=== PATIENT | female | born 1950 | race Caucasian/White ===

== ENCOUNTER 2020-12-29 12:15 | Outpatient (REF) | payer OTHER, SELFPAY ==
[2020-12-29 12:57] LABS: MANUAL DIFF FLAG NO
[2020-12-29 13:08] LABS: Basophils Absolute Auto 0.1 X10*3/uL (0.0-0.2); Basophils Percent Auto 0.6 % (0-2); Eosinophils Absolute Auto 0.1 X10*3/uL (0.0-0.4); Eosinophils Percent Auto 1.6 % (0-4); Hematocrit 41.2 % (37-47); Hemoglobin 13.5 g/dl (12.0-16.0); Imm Gran Abs Auto 0.07 X10*3/uL (0.00-0.03); Imm Gran Pct Auto 0.8 % (0.0-0.4); Lymphocytes Absolute Auto 2.4 X10*3/uL (1.2-4.9); Lymphocytes Percent Auto 29.3 % (20-40); Mean Corpuscular HGB Conc 32.8 g/dl (31.0-35.0); Mean Corpuscular Volume 94.5 fL (80-98); Monocytes Absolute Auto 0.7 X10*3/uL (0.1-1.2); Monocytes Percent Auto 8.1 % (2-11); Neutrophils Absolute Auto 4.9 X10*3/uL (2.0-8.3); Neutrophils Percent Auto 59.6 % (45-73); Platelet Count 300 X10*3/uL (160-400); Red Blood Count 4.36 X10*6/uL (4.20-5.50); Red Cell Distribution Width 12.7 % (11.0-16.0); White Blood Count 8.3 X10*3/uL (4.8-10.8)
[2020-12-29 13:31] LABS: C Reactive Protein 0.06 mg/dL (< or = 0.50)
[2020-12-29 13:58] LABS: Erythrocyte Sedimentation Rate 5 MM/HR (0-20)
== END 2020-12-29 12:16 | disposition home or self-care (01) ==
LOC: HO.LAB 12:15
PROVIDERS: Visit Provider Ophthalmology
DX: H46.9 Unspecified optic neuritis (principal)
CPT/HCPCS: 36415; 85025; 85652; 86140

== ENCOUNTER 2023-06-10 07:08 | Day surgery (SDC) | payer MEDICARE, SELFPAY ==
[2023-06-04 13:59] VITALS: BMI 22.7
--- NOTE | 2023-06-07 07:54 | MHC.SHP ---
Pre-Procedural Eval Section A Date of Service: 06/07/23 The patient is an INPATIENT: No Changes since office visit: No Cold of Flu in the past 2 weeks, No New Medical Problems, No Changes in Medication and No Patient answered all questions The History & Physical has been completed within 30 days and I have reviewed it.: Yes Section B Chief Complaint: Age-related nuclear cataract, right eye Allergies: Allergies Allergy/AdvReac Type Severity Reaction Status Date / Time amoxicillin Allergy Severe Rash Verified 06/04/23 13:56 nitrofurantoin Allergy Severe Rash, fever Verified 06/04/23 13:56 [From Macrobid] Penicillins Allergy Severe Rash Verified 06/04/23 13:56 sulfamethoxazole Allergy Severe Rash Verified 06/04/23 13:56 [From Bactrim] trimethoprim [From Bactrim] Allergy Severe Rash Verified 06/04/23 13:56 lactose Allergy Intermediate Gastrointestinal Verified 06/04/23 13:56 Upset Plan Diagnosis/Plan: Unchanged I have reviewed the history and physical and performed a pertinent physical examination on my patient. No changes have occurred unless specified. Time Spent With Patient Time: Total time managing care of this patient today ____ minutes.
[2023-06-10] MEDS: Cyclopentolate 1 % Ophth Sol 2 ML DRPBTL 1 DROP EYE-RIGHT ×3 (08:00→08:09)
[2023-06-10] MEDS: Tetracaine HCl/PF 0.5% Oph Sol 4 ML DROPS 1 DROP EYE-RIGHT (08:00)
[2023-06-10] MEDS: Ketorolac Tromethamine 0.5% Op 5 ML DROPS 1 DROP EYE-RIGHT ×3 (08:00→08:09)
[2023-06-10] MEDS: Lactated Ringers 500 ML 50 ML IV (08:01)
[2023-06-10] MEDS: Tropicamide 1 % Ophth Sol 3 ML BTL 1 DROP EYE-RIGHT ×3 (08:01→08:09)
[2023-06-10] MEDS: Phenylephrine HCL 2.5% Oph SoL 2 ML BOTTLE 1 DROP EYE-RIGHT ×3 (08:01→08:09)
[2023-06-10 08:11] VITALS: BP 128/81; PULSE 66; RESP 18; TEMP 36.7; O2SAT 99
--- NOTE | 2023-06-10 08:22 | PC.NURSE ---
verified with Jd in pharmacy that patient can receive all eye drops with allergies/reactions verified with patient. he stated yes.
--- NOTE | 2023-06-10 08:39 | P.CONAN_ITS ---
[facility] Past Medical History Medical History Cataract Chronic back pain Generalized anxiety disorder GERD (gastroesophageal reflux disease) History of palpitations Hx of malignant melanoma Hypertension Insomnia Irritable bowel syndrome (IBS) Low back pain Mixed hyperlipidemia Osteoporosis Scoliosis Family History Family history of problems with anesthesia: No Surgical History Surgical History H/O melanoma excision History of hysterectomy Hx of colonoscopy History of Problems with Anesthesia: No Social History Social History Are you a primary workforce investment act career manager to a significant other at home: No Do you presently have visiting nurse or other home services: No Patient Tobacco Use Status: Never used Tobacco Use of substances other than those prescribed or required for medical reasons: No Have you been hit, kicked, punched, or otherwise hurt by someone within the past year? If so, by whom?: No Are you DNR?: No Advance Directives: No Advance Directives Information Provided: Yes Advance Directives on File: No Recently lost weight without trying: No Nutrition Risks: No Nutritional Risk Meds Allergies Allergy/AdvReac Type Severity Reaction Status Date / Time amoxicillin Allergy Severe Rash Verified 06/10/23 07:59 nitrofurantoin Allergy Severe Rash, fever Verified 06/10/23 07:59 [From Macrobid] Penicillins Allergy Severe Rash Verified 06/10/23 07:59 sulfamethoxazole Allergy Severe Rash Verified 06/10/23 07:59 [From Bactrim] trimethoprim [From Bactrim] Allergy Severe Rash Verified 06/10/23 07:59 lactose Allergy Intermediate Gastrointestinal Verified 06/10/23 07:59 Upset Active Medications: Current Medications Lactated Ringer's (Lr) 500 mls @ 50 mls/hr IV .Q10H AKRIN Stop: 06/10/23 17:44 Last Admin: 06/10/23 08:01 Dose: 50 mls/hr Povidone Iodine (Povidone Iodine 5 % Ophth Soln 30 Ml Bottle) 1 appl EYE-RIGHT PREOP PRN PRN Reason: Pre-Op Surgical Implant Prophy Home Medications Medication Instructions Recorded Confirmed Last Taken Type atorvastatin 20 mg tablet 20 mg PO DAILY 06/03/23 06/04/23 Unknown History latanoprost 0.005 % eye drops 1 drp ophthalmic (eye) BEDTIME 06/03/23 06/04/23 Unknown History lisinopril 5 mg tablet 5 mg PO DAILY 06/03/23 06/04/23 Unknown History sertraline 50 mg tablet 75 mg PO DAILY 06/03/23 06/04/23 Unknown History trazodone 50 mg tablet 25 mg PO BEDTIME 06/03/23 06/04/23 Unknown History Evenity Q4W 06/04/23 Unknown History cholecalciferol (vitamin D3) 25 25 mcg PO DAILY 06/04/23 06/04/23 Unknown History mcg (1,000 unit) capsule (Vitamin D3) famotidine 10 mg tablet (Pepcid AC) 10 mg PO DAILY PRN Gastric Reflux 06/04/23 06/04/23 Unknown History loratadine 10 mg tablet (Claritin) 10 mg PO DAILY PRN Allergy Symptoms 06/04/23 06/04/23 Unknown History Exam Exam Date and Time: June 10, 2023 0839 Height,Weight and Vital Signs: Height 5 ft 1 in Weight 54.431 kg Last Vital Signs Temp 98.1 F 06/10/23 08:11 Pulse 66 06/10/23 08:11 Resp 18 06/10/23 08:11 BP 128/81 06/10/23 08:11 Pulse Ox 99 06/10/23 08:11 O2 Del Method Room Air 06/10/23 08:11 Airway Mallampati Class: III TM Dist: >3cm Neck ROM: Full Loose/Missing/Broken Teeth: No (Denies broken, loose, missing teeth) Heart: RRR Lungs: CTAB Assessment and Plan Assessment Anesthesia Assessment: Anesthesia Plan Discussed and Chart Reviewed Final Anesthetic Review Family History of Problems with Anesthesia: No History of Problems with Anesthesia: No NPO: Yes ASA Class: II Final Preanesthetic Review: No Changes in Pt Med Stat, Meds/Allgs Chart Reviewed, Consent Obtained/Reviewed and Anes Risks/Benef Reviewed Patient Risk: Low Procedure Risk: Low Assessment/Block/Sedation in SS: Assess/Block/Sedation-SS Anesthetic Plan Anesthetic Plan: MAC: Disposition: Standard PACU
--- NOTE | 2023-06-10 08:57 | HO.PNOPHT ---
Ophthalmology Procedure Procedure Date of Service: 06/10/23 Ophthalmology Viscoelastic: Healradha Duet Dual Pack Pro Ophthalmology Lenses: TECNIS [id number] (21.5) Procedure Notes: PREOPERATIVE DIAGNOSIS: Decreased visual acuity right eye secondary to cataract POSTOPERATIVE DIAGNOSIS: Same PROCEDURE: Right cataract extraction with intraocular lens insertion SURGEON: Abdirashid Lovelace M.D. ANESTHESIA: Topical/MAC ESTIMATED BLOOD LOSS: None COMPLICATIONS: None After obtaining informed consent, the patient was brought to the operating room suite and placed in the supine position. After adequate sedation per anesthesia, topical drops of Tetracaine were given to the right eye. The eye was then prepped and draped in the usual sterile fashion. The operating room microscope was then positioned over the operative eye and a lid speculum placed. A paracentesis was created. Viscoelastic was then instilled into the anterior chamber. A three plane incision was then created temporally, utilizing a 2.85 mm keratome. Capsulotomy forceps were then utilized to create a circular tear capsulotomy. Hydrodissection and hydrodelineation were carried out until adequate mobilization of the nucleus occurred. Phacoemulsification was then utilized to remove the dense central nucleus followed by removal of the cortical material utilizing the automated aspiration irrigation unit. Viscoelastic was instilled into the posterior capsular bag followed by placement of a posterior chamber intraocular lens without difficulty. The residual Viscoelastic was then removed utilizing the automated IA machine. The wound was checked and found to be watertight. The patient tolerated the procedure well and the lid speculum was removed. Intracameral injection of Vigamox 0.1 mL followed by a subtenon injection of Kenalog-40 0.2 mL were administered. The patient will be seen in the a.m.
[2023-06-10 09:18] VITALS: BP 139/61; PULSE 56; RESP 13; TEMP 36.6; O2SAT 100
[2023-06-10 09:35] VITALS: BP 139/65; PULSE 61; RESP 13; TEMP 36.6; O2SAT 100
== END 2023-06-10 09:36 | disposition home or self-care (01) ==
PROVIDERS: PCP Internal Medicine; Visit Provider Ophthalmology
PROC: (CPT 66985; principal; 2023-06-10 08:50)
DX: H25.11 Age-related nuclear cataract, right eye (principal); H54.7 Unspecified visual loss; H40.053 Ocular hypertension, bilateral; J30.2 Other seasonal allergic rhinitis; Z79.899 Other long term (current) drug therapy; Z88.0 Allergy status to penicillin; Z88.1 Allergy status to other antibiotic agents
CPT/HCPCS: 66984; J2250; J3010; J3301; V2632

== ENCOUNTER 2023-06-24 07:27 | Day surgery (SDC) | payer MEDICARE, SELFPAY ==
--- NOTE | 2023-06-14 08:16 | MHC.SHP ---
Pre-Procedural Eval Section A Date of Service: 06/14/23 The patient is an INPATIENT: No Changes since office visit: No Cold of Flu in the past 2 weeks, No New Medical Problems, No Changes in Medication and No Patient answered all questions The History & Physical has been completed within 30 days and I have reviewed it.: Yes Section B Chief Complaint: Age-related nuclear cataract, left eye Allergies: Allergies Allergy/AdvReac Type Severity Reaction Status Date / Time amoxicillin Allergy Severe Rash Verified 06/10/23 07:59 nitrofurantoin Allergy Severe Rash, fever Verified 06/10/23 07:59 [From Macrobid] Penicillins Allergy Severe Rash Verified 06/10/23 07:59 sulfamethoxazole Allergy Severe Rash Verified 06/10/23 07:59 [From Bactrim] trimethoprim [From Bactrim] Allergy Severe Rash Verified 06/10/23 07:59 lactose Allergy Intermediate Gastrointestinal Verified 06/10/23 07:59 Upset Plan Diagnosis/Plan: Unchanged I have reviewed the history and physical and performed a pertinent physical examination on my patient. No changes have occurred unless specified. Time Spent With Patient Time: Total time managing care of this patient today ____ minutes.
--- NOTE | 2023-06-20 12:20 | HO.ANESPROP2 ---
Documented by User: Gill Washington NP 06/20/23 12:20 HPI - Anesthesia Eval Consult details Narrative: 73yo F for Left Cataract Extraction IOL Insertion s/p right eye 06/10/23 with TIVA: Fent 50, Midaz 1 PMFSH Past Medical History Medical History Cataract Chronic back pain Generalized anxiety disorder GERD (gastroesophageal reflux disease) History of palpitations Hx of malignant melanoma Hypertension Insomnia Irritable bowel syndrome (IBS) Low back pain Mixed hyperlipidemia Osteoporosis Scoliosis Family History Family history of problems with anesthesia: No Surgical History Surgical History H/O melanoma excision History of hysterectomy Hx of colonoscopy History of Problems with Anesthesia: No Social History Social History Are you a primary career technology teacher to a significant other at home: No Do you presently have visiting nurse or other home services: No Patient Tobacco Use Status: Never used Tobacco Use of substances other than those prescribed or required for medical reasons: No Have you been hit, kicked, punched, or otherwise hurt by someone within the past year? If so, by whom?: No Are you DNR?: No Advance Directives: No Advance Directives Information Provided: Yes Advance Directives on File: No Recently lost weight without trying: No Nutrition Risks: No Nutritional Risk Meds Allergies Allergy/AdvReac Type Severity Reaction Status Date / Time amoxicillin Allergy Severe Rash Verified 06/10/23 07:59 nitrofurantoin Allergy Severe Rash, fever Verified 06/10/23 07:59 [From Macrobid] Penicillins Allergy Severe Rash Verified 06/10/23 07:59 sulfamethoxazole Allergy Severe Rash Verified 06/10/23 07:59 [From Bactrim] trimethoprim [From Bactrim] Allergy Severe Rash Verified 06/10/23 07:59 lactose Allergy Intermediate Gastrointestinal Verified 06/10/23 07:59 Upset Home Medications Medication Instructions Recorded Confirmed Last Taken Type atorvastatin 20 mg tablet 20 mg PO DAILY 06/03/23 06/04/23 Unknown History latanoprost 0.005 % eye drops 1 drp ophthalmic (eye) BEDTIME 06/03/23 06/04/23 Unknown History lisinopril 5 mg tablet 5 mg PO DAILY 06/03/23 06/04/23 Unknown History sertraline 50 mg tablet 75 mg PO DAILY 06/03/23 06/04/23 06/24/23 History trazodone 50 mg tablet 25 mg PO BEDTIME 06/03/23 06/04/23 Unknown History Evenity Q4W 06/04/23 Unknown History cholecalciferol (vitamin D3) 25 25 mcg PO DAILY 06/04/23 06/04/23 Unknown History mcg (1,000 unit) capsule (Vitamin D3) famotidine 10 mg tablet (Pepcid AC) 10 mg PO DAILY PRN Gastric Reflux 06/04/23 06/04/23 Unknown History loratadine 10 mg tablet (Claritin) 10 mg PO DAILY PRN Allergy Symptoms 06/04/23 06/04/23 Unknown History Exam Exam Date and Time: June 20, 2023 1220 Height,Weight and Vital Signs: Height 5 ft 1 in Assessment and Plan Assessment Anesthesia Assessment: Chart Reviewed Final Anesthetic Review Family History of Problems with Anesthesia: No History of Problems with Anesthesia: No Documented by User: Carmen Mckeon MD 06/24/23 08:56 [facility] Past Medical History Medical History Cataract Chronic back pain Generalized anxiety disorder GERD (gastroesophageal reflux disease) History of palpitations Hx of malignant melanoma Hypertension Insomnia Irritable bowel syndrome (IBS) Low back pain Mixed hyperlipidemia Osteoporosis Scoliosis Surgical History Surgical History H/O melanoma excision History of hysterectomy Hx of colonoscopy Social History Social History Are you a primary career technology teacher to a significant other at home: No Do you presently have visiting nurse or other home services: No Patient Tobacco Use Status: Never used Tobacco Use of substances other than those prescribed or required for medical reasons: No Have you been hit, kicked, punched, or otherwise hurt by someone within the past year? If so, by whom?: No Are you DNR?: No Advance Directives: No Advance Directives Information Provided: Yes Advance Directives on File: No Recently lost weight without trying: No Nutrition Risks: No Nutritional Risk Meds Allergies Allergy/AdvReac Type Severity Reaction Status Date / Time amoxicillin Allergy Severe Rash Verified 06/10/23 07:59 nitrofurantoin Allergy Severe Rash, fever Verified 06/10/23 07:59 [From Macrobid] Penicillins Allergy Severe Rash Verified 06/10/23 07:59 sulfamethoxazole Allergy Severe Rash Verified 06/10/23 07:59 [From Bactrim] trimethoprim [From Bactrim] Allergy Severe Rash Verified 06/10/23 07:59 lactose Allergy Intermediate Gastrointestinal Verified 06/10/23 07:59 Upset Home Medications Medication Instructions Recorded Confirmed Last Taken Type atorvastatin 20 mg tablet 20 mg PO DAILY 06/03/23 06/04/23 Unknown History latanoprost 0.005 % eye drops 1 drp ophthalmic (eye) BEDTIME 06/03/23 06/04/23 Unknown History lisinopril 5 mg tablet 5 mg PO DAILY 06/03/23 06/04/23 Unknown History sertraline 50 mg tablet 75 mg PO DAILY 06/03/23 06/04/23 06/24/23 History trazodone 50 mg tablet 25 mg PO BEDTIME 06/03/23 06/04/23 Unknown History Evenity Q4W 06/04/23 Unknown History cholecalciferol (vitamin D3) 25 25 mcg PO DAILY 06/04/23 06/04/23 Unknown History mcg (1,000 unit) capsule (Vitamin D3) famotidine 10 mg tablet (Pepcid AC) 10 mg PO DAILY PRN Gastric Reflux 06/04/23 06/04/23 Unknown History loratadine 10 mg tablet (Claritin) 10 mg PO DAILY PRN Allergy Symptoms 06/04/23 06/04/23 Unknown History Exam Airway Mallampati Class: II TM Dist: >3cm Neck ROM: Full Loose/Missing/Broken Teeth: No Heart: RRR Lungs: CTA Assessment and Plan Assessment Anesthesia Assessment: Anesthesia Plan Discussed Final Anesthetic Review NPO: Yes ASA Class: II Final Preanesthetic Review: Meds/Allgs Chart Reviewed, Consent Obtained/Reviewed and Anes Risks/Benef Reviewed Patient Risk: Low Procedure Risk: Low Anesthetic Plan Anesthetic Plan: MAC: Disposition: Standard PACU
[2023-06-24 07:47] VITALS: BP 103/66; PULSE 72; RESP 18; TEMP 37.2; O2SAT 99
[2023-06-24 07:59] VITALS: BMI 22.7
[2023-06-24] MEDS: Lactated Ringers 500 ML 50 ML IV (08:01)
[2023-06-24] MEDS: Tetracaine HCl/PF 0.5% Oph Sol 4 ML DROPS 1 DROP EYE-LEFT (08:02)
[2023-06-24] MEDS: Cyclopentolate 1 % Ophth Sol 2 ML DRPBTL 1 DROP EYE-LEFT ×3 (08:03→08:09)
[2023-06-24] MEDS: Phenylephrine HCL 2.5% Oph SoL 2 ML BOTTLE 1 DROP EYE-LEFT ×3 (08:03→08:09)
[2023-06-24] MEDS: Ketorolac Tromethamine 0.5% Op 5 ML DROPS 1 DROP EYE-LEFT ×3 (08:03→08:09)
[2023-06-24] MEDS: Tropicamide 1 % Ophth Sol 3 ML BTL 1 DROP EYE-LEFT ×3 (08:04→08:09)
--- NOTE | 2023-06-24 09:22 | HO.PNOPHT ---
Ophthalmology Procedure Procedure Date of Service: 06/24/23 Ophthalmology Viscoelastic: Healradha Duet Dual Pack Pro Ophthalmology Lenses: TECNIS [id number] (21.5) Procedure Notes: PREOPERATIVE DIAGNOSIS: Decreased visual acuity left eye secondary to cataract POSTOPERATIVE DIAGNOSIS: Same PROCEDURE: Left cataract extraction with intraocular lens insertion SURGEON: Abdirashid Lovelace M.D. ANESTHESIA: Topical/MAC ESTIMATED BLOOD LOSS: None COMPLICATIONS: None After obtaining informed consent, the patient was brought to the operation room suite and placed in the supine position. After adequate sedation per anesthesia, topical drops of Tetracaine were given to the left eye. The eye was then prepped and draped in the usual sterile fashion. The operating room microscope was then positioned over the operative eye and a lid speculum placed. A paracentesis was created. Viscoelastic was then instilled into the anterior chamber. A three plane incision was then created temporally, utilizing a 2.85 mm keratome. Capsulotomy forceps were then utilized to create a circular tear capsulotomy. Hydrodissection and hydrodelineation were carried out until adequate mobilization of the nucleus occurred. Phacoemulsification was then utilized to remove the dense central nucleus followed by removal of the cortical material utilizing the automated aspiration irrigation unit. Viscoat elastic was instilled into the posterior capsular bag followed by placement of a posterior chamber intraocular lens without difficulty. The residual Viscoat elastic was then removed utilizing the automated IA machine. The wound was check and found to be watertight. The patient tolerated the procedure well and the lid speculum was removed. Intracameral injection of Vigamox 0.1 mL followed by a subtenon injection of Kenalog-40 0.2 mL were administered. The patient will be seen in the a.m.
[2023-06-24 09:50] VITALS: BP 145/66; PULSE 63; RESP 16; TEMP 37; O2SAT 100
== END 2023-06-24 09:58 | disposition home or self-care (01) ==
PROVIDERS: PCP Internal Medicine; Visit Provider Ophthalmology
PROC: (CPT 66985; principal; 2023-06-24 10:20)
DX: H25.12 Age-related nuclear cataract, left eye (principal); H54.7 Unspecified visual loss; I10 Essential (primary) hypertension; H40.053 Ocular hypertension, bilateral; K21.9 Gastro-esophageal reflux disease without esophagitis; G89.4 Chronic pain syndrome; F41.1 Generalized anxiety disorder; Z79.899 Other long term (current) drug therapy; Z88.0 Allergy status to penicillin; Z88.1 Allergy status to other antibiotic agents
CPT/HCPCS: 66984; J2250; J3010; J3301; V2632

== ENCOUNTER 2024-08-31 10:14 | Outpatient (REF) | payer MEDICARE, SELFPAY ==
[2024-08-31 11:12] VITALS: BP 122/66; PULSE 67; RESP 16; TEMP 36.6; O2SAT 99; BMI 50.0
== END 2024-08-31 10:15 | disposition home or self-care (01) ==
LOC: HO.MS 10:14
PROVIDERS: PCP Internal Medicine; Visit Provider Ophthalmology
PROC: (CPT 66821; principal; 2024-08-31 12:00)
DX: H26.491 Other secondary cataract, right eye (principal)
CPT/HCPCS: 66821